=== PATIENT | male | born 1955 | race Caucasian/White ===

== ENCOUNTER 2016-07-08 10:43 | Emergency (ER) | payer BC ==
[2016-07-08 10:58] VITALS: BP 157/107; PULSE 84; TEMP 97.4; BMI 38.0
--- NOTE | 2016-07-08 12:31 | PDOC ---
[id number] Initial Comments: 07/08/16 14:42 The patient is a 61 year old male with a significant past medical history of HTN who presents to the Emergency Department with complaints head injury s/p fall at 10:30am. Pt states that he slipped and fell backward on a moving truck ramp, and hit the back of his head. He denies any LOC. He denies any chest pain , SOB, palpitation, dizziness, or headache prior to fall. Pt reports head and neck pain while in the ER. He also reports chills and nausea. He denies fever, abdominal pain, vomiting, diarrhea, back pain, nubmness, tingling, dizziness. Pt states that he lives in [place] and he travels alot for work. PCP: in [place] <Carmen Lockhart - Last Filed: 07/08/16 14:42> <Morgan Salinas - Last Filed: 07/12/16 09:18> - General Chief Complaint: Injury Stated Complaint: FALL/ HEAD INJURY Time Seen by Provider: 07/08/16 11:28 Past History <Carmen Lockhart - Last Filed: 07/08/16 14:42> - Past Medical History HTN: Yes - Surgical History Appendectomy: Yes - Psycho/Social/Smoking Cessation Hx Suicidal Ideation: No Smoking History: Former smoker Have you smoked in the past 12 months: No Information on smoking cessation initiated: No <Morgan Salinas - Last Filed: 07/12/16 09:18> - Past Medical History Allergies/Adverse Reactions: Allergies Allergy/AdvReac Type Severity Reaction Status Date / Time No Known Allergies Allergy Verified 07/08/16 10:53 Home Medications: Ambulatory Orders Lisinopril/Hydrochlorothiazide [Lisinopril-Hctz 20-12.5 mg Tab] 1 each PO DAILY 07/08/16 Ondansetron [Zofran -] 4 mg PO TID PRN #14 tablet 07/08/16 Review of Systems - Review of Systems Able to Perform ROS?: Yes Comments:: 07/08/16 14:43 CONSTITUTIONAL: Yes: chills No reported: Fever, Diaphoresis, Generalized Weakness, Malaise, Loss of Appetite HEENT: No reported: Rhinorrhea, Nasal Congestion, Throat Pain, Throat Swelling, Difficulty Swallowing, Mouth Swelling, Ear Pain, Eye Pain, Visual Changes CARDIOVASCULAR: No reported: Chest Pain, Syncope, Palpitations, Irregular Heart Rate, Lightheadedness, Peripheral Edema RESPIRATORY: No reported: Cough, Shortness of Breath, SOB with Exertion, Orthopnea, Wheezing , Stridor, Hemoptysis GASTROINTESTINAL: Yes: nausea No reported: Abdominal pain, Abdominal Distension, Vomiting, Diarrhea, Constipation, Melena, Hematochezia GENITOURINARY: No reported: Dysuria, Frequency, Urgency, Hesitancy, Flank Pain, Genital Pain MUSCULOSKELETAL: Yes: head pain, neck pain No reported: Joint Swelling, Back pain SKIN: No reported: Rash, Itching, Pallor HEMEATOLOGIC/IMMUNOLOGIC: No reported: Easy Bleeding, Easy Bruising, Lymphadenopathy, Frequent infections ENDOCRINE: No reported: Unexplained Weight Gain, Unexplained Weight Loss, Heat Intolerance , Cold Intolerance NEUROLOGIC: No reported: Headache, Focal Weakness, Paresthesias, Vertigo, Lightheadedness, Unsteady Gait, Seizure, Mental Status Changes, Incontinence PSYCHIATRIC: No reported: Anxiety, Depression All Other Systems: Reviewed and Negative <Carmen Lockhart - Last Filed: 07/08/16 14:42> *Physical Exam - Vital Signs Last Vital Signs Temp Pulse Resp BP Pulse Ox 97.4 F L 84 21 157/107 99 07/08/16 10:54 07/08/16 10:54 07/08/16 10:54 07/08/16 10:54 07/08/16 10:54 - Physical Exam Comments: 07/08/16 14:43 GENERAL: The patient is awake, alert, and fully oriented, Nontoxic - in no acute distress. HEAD: Normocephalic, contusion on posterior scalp, mildly tender to palpation, no stepoffs. EYES: extraocular movements intact, sclera anicteric, conjunctiva clear. pupils 3mm and reactively symmetric ENT: Normal voice, Moist mucous membranes. NECK: Normal range of motion, supple, LUNGS: Breath sounds equal, clear to auscultation bilaterally. No wheezes, no rhonchi, no rales. HEART: Regular rate and rhythm, normal S1 and S2 without murmur, rub or gallop. ABDOMEN: Soft, nontender, normoactive bowel sounds. No guarding, no rebound. . No CVA tenderness EXTREMITIES: Normal range of motion, +2pitting edema b/l, mild erythema with ski nchanges over L quintero without warmth (chronic per patient) No cords or tenderness. NEUROLOGICAL: No facial assymetry, Normal speech, PSYCH: Normal mood, normal affect. SKIN: Warm, Dry, normal turgor, Back: No midline tenderness to the cervical, thoracic or lumbar spine, mild tenderness to R cervical paraspinal region/trapezius. Musculoskelatal: FROM of b/l shoulders, elbows, wrist. FROM of hips, knees, ankles - No signs of ecchymosis, erythema, or crepitus noted on palpation extremities, chest wall, clavicals, ribs, back. <Carmen Lockhart - Last Filed: 07/08/16 14:42> - Vital Signs Last Vital Signs Temp Pulse Resp BP Pulse Ox 97.4 F L 84 21 157/107 99 07/08/16 10:54 07/08/16 10:54 07/08/16 10:54 07/08/16 10:54 07/08/16 10:54 <Morgan Salinas - Last Filed: 07/12/16 09:18> ED Treatment Course - Medications Given in the ED: ED Medications Discontinued Medications Generic Name Dose Route Start Last Admin Trade Name Freq PRN Reason Stop Dose Admin Acetaminophen 650 mg 07/08/16 12:37 07/08/16 13:15 Tylenol - PO 07/08/16 12:38 650 mg ONCE ONE Administration Ondansetron HCl 4 mg 07/08/16 12:37 07/08/16 13:16 Zofran - PO 07/08/16 12:38 4 mg ONCE ONE Administration <Carmen Lockhart - Last Filed: 07/08/16 14:42> Medical Decision Making - Medical Decision Making 07/08/16 12:41 61y M hx of htn, presents s/p mechanical fall. The pt was on a moving truck and slipped on a ramp, landing on his head (fell on the ramp, not off of the ramp) pt was dazed for a few seconds, but dnies any LOC.Pt does endorse headache and feeling nauseus as well as some neck pain. On exam pt has a contusion on his posterior scalp with a hematoma, mild parapsinal tenderness in cervical spine w/ o any midline tenderness elsewhere. will obtain head/cspine director trust to ro fx will give tylenol, zofran for sypmtomatic relief will reassess 07/08/16 14:[address] of the head is negative for any fracture or bleeding or other acute findings. The patient's CT of the C-spine is also negative, beside mild joint arthropathy , and some degenerative changes. He is feeling improved. Will discharge patient to follow up with primary care, Postconcussive instructions were given Will give a prescription for Zofran Supportive care at home I discussed the physical exam findings, ancillary test results and final diagnoses with the patient. I answered all of the patient's questions. The patient was satisfied with the care received and felt comfortable with the discharge plan and treatment plan. The patient will call their primary care physician within 24 hours to arrange follow-up and will return to the Emergency Department with any new, persistent or worsening symptoms. <Morgan Salinas - Last Filed: 07/12/16 09:18> *DC/Admit/Observation/Transfer - Attestations Scribe Attestion: 07/08/16 14:44 Documentation prepared by Carmen Lockhart, acting as nuclear medicine medical director for Morgan Salinas MD. <Carmen Lockhart - Last Filed: 07/08/16 14:42> - Discharge Dispostion Admit: No <Morgan Salinas - Last Filed: 07/12/16 09:18> Diagnosis at time of Disposition: Head injury due to trauma Qualifiers: Encounter type: initial encounter Qualified Code(s): S09.90XA - Unspecified injury of head, initial encounter - Discharge Dispostion Disposition: HOME Condition at time of disposition: Improved - Prescriptions Prescriptions: Ondansetron [Zofran -] 4 mg PO TID PRN #14 tablet PRN Reason: Nausea - Referrals Referrals: [facility] [Provider Group] - Patient Instructions Printed Discharge Instructions: DI for Closed Head Injury, DI for Postconcussion Syndrome Additional Instructions: Eat light. Clear liquids, such as broth or gelatin, are a good choice. Don't drink alcohol or use any recreational drugs. Don't return to sports or any activity that could cause you to hit your head until all symptoms are gone and you have been cleared by your doctor. A second head injury before full recovery from the first one can lead to serious brain injury. Avoid activities that require a lot of concentration or attention (including reading, surfing the web, watching tv). This will allow your brain to rest and heal more quickly. Take ibuprofen or tylenol as needed for headache. Take Zofran for nausea. Follow up with your primary care doctor in 5 days. Follow up with neurology in 2 weeks, especially if your symptoms have not yet resolved. Print Language: [place] CITIZ[place]
[2016-07-08] MEDS ORDERED: ACETAMINOPHEN 325 MG TABLET (FP) PO ONE (12:37)
[2016-07-08] MEDS ORDERED: ONDANSETRON 4 MG TABLET PO ONE (12:37)
[2016-07-08] MEDS ORDERED: ONDANSETRON *ODT* 4 MG TABLET ONE (13:09)
[2016-07-08] MEDS ORDERED: ACETAMINOPHEN 325 MG TABLET (FP) ONE (13:09)
== END 2016-07-08 14:54 | disposition home or self-care (01) ==
LOC: JER 10:43
DX: S09.90XA Unspecified injury of head, initial encounter (principal); W18.30XA Fall on same level, unspecified, initial encounter; Y93.89 Activity, other specified; Y92.9 Unspecified place or not applicable; I10 Essential (primary) hypertension; Z87.891 Personal history of nicotine dependence
CPT/HCPCS: 70450-TC; 72125-TC; 99282-25

== ENCOUNTER 2017-04-22 03:37 | Inpatient (IN) | payer BC ==
[2017-04-22 04:13] LABS: MCH 26.1 pg (25.7-33.7); MCHC 31.7 g/dl (32.0-35.9); MEAN CELL VOLUME 82.3 fl (80-96); MEAN PLT VOLUME 9.1 fl (7.5-11.1); NEUTROPHILS 70.5 % (42.8-82.8); PLATELET COUNT 257 K/MM3 (134-434); RDW 15.6 % (11.9-15.9); WHITE BLOOD COUNT 10.8 K/mm3 (4.0-10.0)
[2017-04-22 04:29] LABS: INR 1.03 (0.82-1.09); PROTHROMBIN TIME (PATIENT) 11.6 SEC (9.98-11.88)
--- NOTE | 2017-04-22 04:31 | PDOC ---
History of Present Illness - General History Source: Patient Exam Limitations: No Limitations - History of Present Illness Initial Comments: 04/22/17 05:08 The patient is a 61-year-old male with a significant past medical history of HTN and prostate CA, and presents to the emergency department with nose bleed for the last 5 days and severe nasal bleeding since 12:30 am tonight. He states he has been bleeding profusely on and off for the last 4 hours. They were able to mildly control the bleeding every half hour with ice packs to the nose and neck. The states each episode produces about three paper cups full of blood. He states he does not have a history of nosebleeds, and this is the first time he has experienced nosebleeds like this. He notes associated lightheadedness and dizziness. He denies any acute trauma. He also reports that he stopped taking Viagra 5 days ago as well. He states the swelling in his left leg is due to poor circulation from a previous injury. The patient denies chest pain, shortness of breath or headache. The patient denies fever, chills, nausea, vomit, diarrhea and constipation. The patient denies dysuria, frequency, urgency and hematuria. Allergies: NKDA Past Surgical History: prostatectomy (2017) Social History: No toxic habits reported PCP: in [place] <Patti Ch - Last Filed: 04/22/17 05:08> <Vicki Etienne - Last Filed: 04/23/17 01:21> - General Chief Complaint: Nasal Bleeding Stated Complaint: NOSE BLEED Time Seen by Provider: 04/22/17 04:01 Past History <Patti Ch - Last Filed: 04/22/17 05:08> - Past Medical History HTN: Yes - Surgical History Appendectomy: Yes - Suicide/Smoking/Psychosocial Hx Smoking History: Never smoked Have you smoked in the past 12 months: No Information on smoking cessation initiated: No Hx Alcohol Use: No Drug/Substance Use Hx: No <Vicki Etienne - Last Filed: 04/23/17 01:21> - Past Medical History Allergies/Adverse Reactions: Allergies Allergy/AdvReac Type Severity Reaction Status Date / Time No Known Allergies Allergy Verified 04/22/17 03:46 Home Medications: Ambulatory Orders Lisinopril/Hydrochlorothiazide [Lisinopril-Hctz 20-12.5 mg Tab] 1 each PO DAILY 07/08/16 Amoxicillin/Potassium Clav [Augmentin 875-125 Tablet] 1 each PO BID #10 tablet 04/22/17 Review of Systems - Review of Systems Able to Perform ROS?: Yes Comments:: 04/22/17 05:08 GENERAL/CONSTITUTIONAL: No fever or chills. No weakness. HEAD, EYES, EARS, NOSE AND THROAT: No change in vision. No ear pain or discharge. No sore throat. (+) Nasal bleeding. CARDIOVASCULAR: No chest pain or shortness of breath. RESPIRATORY: No cough, wheezing, or hemoptysis. GASTROINTESTINAL: No nausea, vomiting, diarrhea or constipation. GENITOURINARY: No dysuria, frequency, or change in urination. MUSCULOSKELETAL: No joint or muscle swelling or pain. No neck or back pain. SKIN: No rash NEUROLOGIC: (+) Lightheadedness. No headache, vertigo, loss of consciousness, or change in strength/sensation. ENDOCRINE: No increased thirst. No abnormal weight change. HEMATOLOGIC/LYMPHATIC: No anemia, or history of blood clots. ALLERGIC/IMMUNOLOGIC: No hives or skin allergy. <Ch,Patti - Last Filed: 04/22/17 05:08> *Physical Exam - Vital Signs Last Vital Signs Temp Pulse Resp BP Pulse Ox 97.3 F L 81 22 79/62 97 04/22/17 03:46 04/22/17 03:46 04/22/17 03:46 04/22/17 03:46 04/22/17 03:46 - Physical Exam Comments: 04/22/17 05:08 GENERAL: Awake, alert, and fully oriented, in no acute distress. (+) Morbidly obese. (+) Extremely dizzy. (+) Diaphoretic. HEAD: No signs of trauma EYES: PERRLA, EOMI, sclera anicteric, conjunctiva clear ENT: Auricles normal inspection, hearing grossly normal, (+) red blood in nares bilaterally, no active bleeding after compression, oropharynx clear without exudates. Moist mucosa NECK: Normal ROM, supple, no lymphadenopathy, JVD, or masses LUNGS: Breath sounds equal, clear to auscultation bilaterally. No wheezes, and no crackles HEART: Regular rate and rhythm, normal S1 and S2, no murmurs, rubs or gallops ABDOMEN: Soft, nontender, normoactive bowel sounds. No guarding, no rebound. No masses EXTREMITIES: Normal range of motion, (+) bilateral pitting edema, right worse than left. No clubbing or cyanosis. No cords, erythema, or tenderness NEUROLOGICAL: Cranial nerves II through XII grossly intact. SKIN: Warm, Dry, normal turgor, no rashes or lesions noted. (+) Chronic skin changes of the LEs. <Patti Ch - Last Filed: 04/22/17 05:08> - Vital Signs Last Vital Signs Temp Pulse Resp BP Pulse Ox 97.3 F L 81 22 79/62 97 04/22/17 03:46 04/22/17 03:46 04/22/17 03:46 04/22/17 03:46 04/22/17 03:46 <Vicki Etienne - Last Filed: 04/23/17 01:21> ED Treatment Course - LABORATORY CBC & Chemistry Diagram: 04/22/17 03:55 04/22/17 03:55 - ADDITIONAL ORDERS Additional order review: Laboratory Results 04/22/17 04/22/17 04/22/17 04:13 03:55 03:55 PT with INR INR Sodium 141 Potassium 4.5 Chloride 107 Carbon Dioxide 23 Anion Gap 11 BUN 27 H Creatinine 0.9 Creat Clearance w eGFR > 60 Random Glucose 156 H Calcium 7.9 L Total Bilirubin 0.3 AST 13 L ALT 21 Alkaline Phosphatase 87 Creatine Kinase 108 Troponin I < 0.02 Total Protein 5.7 L Albumin 2.9 L Blood Type O POSITIVE O POSITIVE Antibody Screen Negative Crossmatch See Detail See Detail 04/22/17 03:55 PT with INR 11.60 INR 1.03 Sodium Potassium Chloride Carbon Dioxide Anion Gap BUN Creatinine Creat Clearance w eGFR Random Glucose Calcium Total Bilirubin AST ALT Alkaline Phosphatase Creatine Kinase Troponin I Total Protein Albumin Blood Type Antibody Screen Crossmatch 04/22/17 03:55 RBC 4.18 MCV 82.3 MCHC 31.7 L RDW 15.6 MPV 9.1 Neutrophils % 70.5 Lymphocytes % 16.7 Monocytes % 8.8 Eosinophils % 3.0 Basophils % 1.0 <Patti Ch - Last Filed: 04/22/17 05:08> - LABORATORY CBC & Chemistry Diagram: 04/22/17 12:05 04/22/17 08:00 - ADDITIONAL ORDERS Additional order review: Laboratory Results 04/22/17 04:13 Crossmatch See Detail 04/22/17 03:55 RBC 4.18 MCV 82.3 MCHC 31.7 L RDW 15.6 MPV 9.1 Neutrophils % 70.5 Lymphocytes % 16.7 Monocytes % 8.8 Eosinophils % 3.0 Basophils % 1.0 <Vicki Etienne - Last Filed: 04/23/17 01:21> Medical Decision Making - Critical Care Time Total Critical Care Time (minutes): 30 Critical Care Statement: The care of this patient involved high complexity decision making to prevent further life threatening deterioration of the patient 's condition and/or to evaluate & treat vital organ system(s) failure or risk of failure. - Medical Decision Making 04/22/17 05:43 Pt walked in with a systolic BP of 70. EMS brought him in but presumably never checked his BP. Pt is diaphoretic and pale in the ER, and looks in shock. Repeat BP sytolic is 52. At that point myself, nurses and techs started 2 IV lines and 1L NSS was begun, while pt was placed flat in the stretcher and [id number] begun. Pt immediately felt better; BP jumped to 103, then back down to 87 and 81. Pt and his state that he has been on and off with nasal bleeding. Today he has been bleeding out 3 cups of blood at a time. Pt is able to stop the bleeding by pinching his nose. He is not on asa or blood thinners. Pt is compliant with his lisinopril. He recently had a prostatectomy for prostate cancer, and he has been on viagra. His PMD from [place] told him to stop the viagra when the epistaxis began on Monday. Pt was ordered 2 units Opositive blood to resuscitate him, as he seems to have lost a lot of blood; labs were pending at the time. No pressors given at this time, as pt is alert and feeling better, despite low BP around 87/50. 04/23/17 01:21 Pt admitted to the ICU <Vicki Etienne - Last Filed: 04/23/17 01:21> *DC/Admit/Observation/Transfer - Attestations Scribe Attestion: 04/22/17 05:10 Documentation prepared by Patti Ch, acting as biomedical engineering aide for Vicki Etienne MD/. <Patti Ch - Last Filed: 04/22/17 05:08> - Discharge Dispostion Admit: Yes <Vicki Etienne - Last Filed: 04/23/17 01:21> Diagnosis at time of Disposition: Hypotension - Discharge Dispostion Disposition: HOME Condition at time of disposition: Stable
[2017-04-22 04:40] LABS: ALBUMIN 2.9 g/dl (3.4-5.0); ANION GAP 11 (8-16); BILIRUBIN,TOTAL 0.3 mg/dL (0.2-1.0); CALCIUM 7.9 mg/dL (8.5-10.1); CO2 23 mmol/L (21-32); CREATININE 0.9 mg/dL (0.7-1.3); GLUCOSE,RANDOM 156 mg/dL (74-106); SGOT/AST 13 U/L (15-37); SGPT/ALT 21 U/L (12-78); TOT PROT 5.7 g/dl (6.4-8.2)
[2017-04-22 04:43] LABS: ALK PHOS 87 U/L (45-117); CPK 108 IU/L (39-308); TROPONIN I < 0.02 ng/ml (0.00-0.05)
[2017-04-22 06:02] VITALS: BMI 54.3
[2017-04-22] MEDS ORDERED: TETRACAINE/BENZOCAINE/BUTAMBEN 20 GM SPR TP ONE (07:01)
--- NOTE | 2017-04-22 07:02 | PN ---
Teaching Attending Note Name of Resident: Frank Bell ATTENDING PHYSICIAN STATEMENT I saw and evaluated the patient. I reviewed the resident's note and discussed the case with the resident. I agree with the resident's findings and plan as documented. SUBJECTIVE: 61 y/o M presented to ED after 4 days of epistaxis. Patient recently stopped his viagra treatment for prostate cancer. s/p prostatectomy in january 2017. Patient ROS: All systems reviewed and negative other than mentioned. OBJECTIVE: Gen: Obese, A&Ox3 HEENT: blood from right nare, PERRLA, EOMI, Oral mucosa no lesions CVS: RRR, S1,S2 LUNGS: CTA, no wheezing Abdomen: Soft, BS+, no organomegaly Ext: b/l lower ext 1+ pitting edema, palpable pulses, slight erythema left lower extremity. Neuro: CN2-12 intact CBCD WBC 10.8 K/mm3 (4.0-10.0) H 04/22/17 03:55 RBC 4.18 M/mm3 (4.00-5.60) 04/22/17 03:55 Hgb 10.9 GM/dL (11.7-16.9) L 04/22/17 03:55 Hct 34.4 % (35.4-49) L 04/22/17 03:55 MCV 82.3 fl (80-96) 04/22/17 03:55 MCHC 31.7 g/dl (32.0-35.9) L 04/22/17 03:55 RDW 15.6 % (11.9-15.9) 04/22/17 03:55 Plt Count 257 K/MM3 (134-434) 04/22/17 03:55 MPV 9.1 fl (7.5-11.1) 04/22/17 03:55 CMP Sodium 141 mmol/L (136-145) 04/22/17 03:55 Potassium 4.5 mmol/L (3.5-5.1) 04/22/17 03:55 Chloride 107 mmol/L (98-107) 04/22/17 03:55 Carbon Dioxide 23 mmol/L (21-32) 04/22/17 03:55 Anion Gap 11 (8-16) 04/22/17 03:55 BUN 27 mg/dL (7-18) H 04/22/17 03:55 Creatinine 0.9 mg/dL (0.7-1.3) 04/22/17 03:55 Creat Clearance w eGFR > 60 (>60) 04/22/17 03:55 Random Glucose 156 mg/dL (74-106) H 04/22/17 03:55 Calcium 7.9 mg/dL (8.5-10.1) L 04/22/17 03:55 Total Bilirubin 0.3 mg/dL (0.2-1.0) 04/22/17 03:55 AST 13 U/L (15-37) L 04/22/17 03:55 ALT 21 U/L (12-78) 04/22/17 03:55 Alkaline Phosphatase 87 U/L (45-117) 04/22/17 03:55 Total Protein 5.7 g/dl (6.4-8.2) L 04/22/17 03:55 Albumin 2.9 g/dl (3.4-5.0) L 04/22/17 03:55 CARDIAC ENZYMES Creatine Kinase 108 IU/L (39-308) 04/22/17 03:55 Troponin I < 0.02 ng/ml (0.00-0.05) 04/22/17 03:55 ASSESSMENT AND PLAN: Epistaxis- Cetacaine, posterior rhinorocket inserted in right nare. HTN- continue lisinopril Anemia secondary to acute blood loss- 1 unit transfused Lasix 20mg IVF after ECHO H/O prostate cancer s/p prostatectomy ENT consult Critical Care Total Critical Care Time (in minutes): 50 Critical Care Statement: The care of this patient involved high complexity decision making to prevent further life threatening deterioration of the patient 's condition and/or to evaluate & treat vital organ system(s) failure or risk of failure.
[2017-04-22] MEDS ORDERED: FUROSEMIDE 20 MG TABLET (FP) PO ONE (07:47)
--- NOTE | 2017-04-22 08:00 | HP ---
CHIEF COMPLAINT: bleeding from nose PCP: HISTORY OF PRESENT ILLNESS: 61 year old male with a past medical history of prostate cancer and hypertension presented to the emergency department this morning for a 5 day history of epistaxis. He states that the bleeding came and went but became very severe last night to the point that he felt weak and lightheaded. He had previously used ice packs to try and control the bleeding, but it was not able to be controlled adequately. Patient is seen together with his , who reports that each time the patient coughs, he brings up a lot of blood in "cupfulls". Patient has never had this happen to him in the past. He just stopped taking viagra last week. Patient denies any trauma, chest pain, shortness of breath, nausea, vomiting, fever, chills, abdominal pain, diarrhea. ED transfused 1 unit of blood. ER course was notable for: (1) Anemia hgb 10.1 (2) BUN/Cre 27/0.1 (3) 1U PRBCs transfused Recent Travel: none PAST MEDICAL HISTORY: hypertension, prostate cancer treated with prostatectomy and viagra PAST SURGICAL HISTORY: prostatectomy, appendectomy Social History: Smoking: none Alcohol: none Drugs: none Family History: unknown at present time Allergies No Known Allergies Allergy (Verified 04/22/17 03:46) HOME MEDICATIONS: Home Medications Medication Instructions Recorded Lisinopril/Hydrochlorothiazide 1 each PO DAILY 07/08/16 [Lisinopril-Hctz 20-12.5 mg Tab] REVIEW OF SYSTEMS CONSTITUTIONAL: Absent: fever, chills, diaphoresis, generalized weakness, malaise, loss of appetite, weight change HEENT: epistaxis Absent: rhinorrhea, nasal congestion, throat pain, throat swelling, difficulty swallowing, mouth swelling, ear pain, eye pain, visual changes CARDIOVASCULAR: Absent: chest pain, syncope, palpitations, irregular heart rate, lightheadedness , peripheral edema RESPIRATORY: Absent: cough, shortness of breath, dyspnea with exertion, orthopnea, wheezing, stridor, hemoptysis GASTROINTESTINAL: Absent: abdominal pain, abdominal distension, nausea, vomiting, diarrhea, constipation, melena, hematochezia GENITOURINARY: Absent: dysuria, frequency, urgency, hesitancy, hematuria, flank pain, genital pain MUSCULOSKELETAL: Absent: myalgia, arthralgia, joint swelling, back pain, neck pain SKIN: Absent: rash, itching, pallor HEMATOLOGIC/IMMUNOLOGIC: Absent: easy bleeding, easy bruising, lymphadenopathy, frequent infections ENDOCRINE: Absent: unexplained weight gain, unexplained weight loss, heat intolerance, cold intolerance NEUROLOGIC: Absent: headache, focal weakness or paresthesias, dizziness, unsteady gait, seizure, mental status changes, bladder or bowel incontinence PSYCHIATRIC: Absent: anxiety, depression, suicidal or homicidal ideation, hallucinations. PHYSICAL EXAMINATION Vital Signs - 24 hr 04/22/17 04/22/17 04/22/17 03:46 03:55 04:00 Temperature 97.3 F L Pulse Rate 81 89 Pulse Rate [ Right Radial] Respiratory 22 Rate Blood Pressure 79/62 Blood Pressure [Right Arm] O2 Sat by Pulse 97 100 100 Oximetry (%) 04/22/17 04/22/17 04/22/17 04:15 04:45 05:00 Temperature 97.5 F L 98.5 F 97.5 F L Pulse Rate Pulse Rate [ 63 88 70 Right Radial] Respiratory 19 19 17 Rate Blood Pressure Blood Pressure 106/45 81/59 94/49 [Right Arm] O2 Sat by Pulse 100 100 100 Oximetry (%) 04/22/17 04/22/17 05:51 06:43 Temperature 98.0 F Pulse Rate 87 Pulse Rate [ Right Radial] Respiratory 20 Rate Blood Pressure 91/43 Blood Pressure [Right Arm] O2 Sat by Pulse 98 100 Oximetry (%) GENERAL: Awake, alert, and fully oriented, in no acute distress. HEAD: Normal with no signs of trauma. EYES: Pupils equal, round and reactive to light, extraocular movements intact, sclera anicteric, conjunctiva clear. No lid lag. EARS, NOSE, THROAT: Ears normal, nares patent, oropharynx has some blood on the inside, nose actively bleeding on the R nostril. NECK: Normal range of motion, supple without lymphadenopathy, JVD, or masses. LUNGS: Breath sounds equal, clear to auscultation bilaterally. No wheezes, and no crackles. No accessory muscle use. HEART: Regular rate and rhythm, normal S1 and S2 without murmur, rub or gallop. ABDOMEN: Soft, obese, nontender, not distended, normoactive bowel sounds, no guarding, no rebound, no masses. No hepatomegaly or splenomegaly. MUSCULOSKELETAL: Normal range of motion at all joints. No bony deformities or tenderness. No CVA tenderness. UPPER EXTREMITIES: 2+ pulses, warm, well-perfused. No cyanosis. No clubbing. No peripheral edema. LOWER EXTREMITIES: 2+ pulses, warm, well-perfused. No calf tenderness. L leg swelling noted. NEUROLOGICAL: Cranial nerves II-XII intact. Normal speech. Normal gait. PSYCHIATRIC: Cooperative. Good eye contact. Appropriate mood and affect. SKIN: Warm, dry, normal turgor, no rashes or lesions noted, normal capillary refill. Laboratory Results - last 24 hr 04/22/17 04/22/17 04/22/17 03:55 03:55 03:55 WBC 10.8 H RBC 4.18 Hgb 10.9 L Hct 34.4 L MCV 82.3 MCH 26.1 MCHC 31.7 L RDW 15.6 Plt Count 257 MPV 9.1 Neutrophils % 70.5 Lymphocytes % 16.7 Monocytes % 8.8 Eosinophils % 3.0 Basophils % 1.0 PT with INR 11.60 INR 1.03 Sodium 141 Potassium 4.5 Chloride 107 Carbon Dioxide 23 Anion Gap 11 BUN 27 H Creatinine 0.9 Creat Clearance w eGFR > 60 Random Glucose 156 H Calcium 7.9 L Total Bilirubin 0.3 AST 13 L ALT 21 Alkaline Phosphatase 87 Creatine Kinase 108 Troponin I < 0.02 Total Protein 5.7 L Albumin 2.9 L Blood Type Antibody Screen Crossmatch 04/22/17 04/22/17 03:55 04:13 WBC RBC Hgb Hct MCV MCH MCHC RDW Plt Count MPV Neutrophils % Lymphocytes % Monocytes % Eosinophils % Basophils % PT with INR INR Sodium Potassium Chloride Carbon Dioxide Anion Gap BUN Creatinine Creat Clearance w eGFR Random Glucose Calcium Total Bilirubin AST ALT Alkaline Phosphatase Creatine Kinase Troponin I Total Protein Albumin Blood Type O POSITIVE O POSITIVE Antibody Screen Negative Crossmatch See Detail See Detail ASSESSMENT/PLAN: 61 year old male with a past medical history of hypertension and prostate cancer admitted to the ICU for hypovolemic shock 2/2 acute blood loss #Hypovolemic Shock: secondary to acute blood loss from epistaxis -already transfused 1U PRBC in ED/ICU, blood pressure responded to blood tranfusion -recheck CBC in 4 hours -patient's Hgb was 10.2 upon receiving transfusion from ED -upon completion of unit of PRBC, give 1 dose of lasix 20mg -transfuse if hgb < 7 -inserted posterior nasal packing -ENT consult Dr. Jj #Hypertension: currently hypotensive -hold home lisinopril #Lower Extremity Edema: patient stated that he has had this before -f/u lower extremity doppler #Morbid Obesity -measure A1C to assess for diabetes/metabolic syndrome -echocardiography to assess cardiac status #Obstructive Sleep Apnea: will need sleep study as an outpatient -CPAP overnight -echocardiography #FEN -finish unit PRBC, hold fluids due to potential volume overload -electrolytes wnl -low sodium diet #Prophylaxis -SCDs, no heparin due to acute bleed #Dispo -Admit to ICU for monitoring -full code Critical Care time 50 minutes Frank Bell D.O. Visit type - Emergency Visit Emergency Visit: Yes ED Registration Date: 04/22/17 Care time: The patient presented to the Emergency Department on the above date and was hospitalized for further evaluation of their emergent condition. - New Patient This patient is new to me today: Yes Date on this admission: 04/22/17 - Critical Care Critical Care patient: Yes Total Critical Care Time (in minutes): 50 Critical Care Statement: The care of this patient involved high complexity decision making to prevent further life threatening deterioration of the patient 's condition and/or to evaluate & treat vital organ system(s) failure or risk of failure.
[2017-04-22 08:28] LABS: BASOPHIL 0.7 % (0-2.0); EOSINOPHIL 0.8 % (0-4.5); MCH 25.9 pg (25.7-33.7); MCHC 31.6 g/dl (32.0-35.9); MEAN CELL VOLUME 81.9 fl (80-96); MEAN PLT VOLUME 8.7 fl (7.5-11.1); NEUTROPHILS 85.7 % (42.8-82.8); PLATELET COUNT 178 K/MM3 (134-434); RDW 15.3 % (11.9-15.9); WHITE BLOOD COUNT 9.3 K/mm3 (4.0-10.0)
[2017-04-22 08:48] LABS: INR 1.05 (0.82-1.09); PROTHROMBIN TIME (PATIENT) 11.9 SEC (9.98-11.88)
[2017-04-22 08:51] LABS: ACTIVATED PTT 28.6 SECONDS (26.9-34.4)
[2017-04-22 09:09] LABS: CHOLESTEROL 124 mg/dL (50-200)
[2017-04-22 09:16] LABS: ALBUMIN 2.6 g/dl (3.4-5.0); ALK PHOS 76 U/L (45-117); ANION GAP 8 (8-16); BILIRUBIN,TOTAL 0.4 mg/dL (0.2-1.0); CALCIUM 7.9 mg/dL (8.5-10.1); CO2 23 mmol/L (21-32); CREATININE 0.8 mg/dL (0.7-1.3); GLUCOSE,RANDOM 115 mg/dL (74-106); PHOSPHOROUS 2.6 mg/dL (2.5-4.9); SGOT/AST 10 U/L (15-37); SGPT/ALT 20 U/L (12-78); TOT PROT 5.5 g/dl (6.4-8.2)
[2017-04-22] MEDS ORDERED: MUPIROCIN 2% TOPICAL OINTMENT FOR DECOLONIZATION NS SCH (10:00)
--- NOTE | 2017-04-22 10:43 | CONSULT ---
Consult - text type - Consultation Consultation Note: Pulm/CCM Pt seen and examined in ICU HPI: 61 year old male with a past medical history of prostate cancer on sildenafil and hypertension who presented to ED this am with 5 day hx of spontaneous epistaixis. The bleeding has been intermittent and pt relates URI in last week. He spoke to oncologist team and they suggested he stop sildenafi, which he did. He made appt for ENT eval for today but last night bleeding became severe and he felt he was unable to effectively control bleeding. Before was able to control with pinching of nares and using ice pack. On way into ED he had presyncopal episode. Denied full LOC, Cxpn, SOB, other changes in medications, trauma. He is not on anticoagulation or anti-plt therapy. He denies frequent nosebleeds. In ED pt was hypotensive with SBP in 80s, tachycardic and pale. Hgb was 10, he was transfused 1 PRBC. A rhino-rocket was placed in R nare with hemostasis acheived. Transferred to ICU. Recent Travel: none PAST MEDICAL HISTORY: hypertension, prostate cancer treated with prostatectomy and viagra PAST SURGICAL HISTORY: prostatectomy, appendectomy Social History: Smoking: none Alcohol: none Drugs: none Family History: unknown at present time Allergies No Known Allergies Allergy (Verified 04/22/17 03:46) HOME MEDICATIONS: Home Medications Medication Instructions Recorded Lisinopril/Hydrochlorothiazide 1 each PO DAILY 07/08/16 [Lisinopril-Hctz 20-12.5 mg Tab] REVIEW OF SYSTEMS 10 pt review is negative except for as per HPI PHYSICAL EXAMINATION Vital Signs Temp 98.0 F 04/22/17 05:51 Pulse 82 04/22/17 10:27 Resp 20 04/22/17 09:57 BP 122/65 04/22/17 09:57 Pulse Ox 99 04/22/17 10:27 Intake & Output 04/21/17 04/21/17 04/22/17 11:59 23:59 11:59 Weight 157.567 kg Other: Voiding Method Urinal Height 5 ft 7 in Body Mass Index (BMI) 54.3 Weight Measurement Method Built in [facility] Weight Measurement Method Est/Stated by Patient GENERAL: Awake, alert, and fully oriented, in no acute distress. HEAD: Normal with no signs of trauma. EYES: PERRL, EOMI EARS, NOSE, THROAT: Ears normal, R packing/rhino rocket in place. NECK: Normal range of motion, supple without lymphadenopathy, JVD, or masses. LUNGS: Breath sounds equal, clear to auscultation bilaterally. No wheezes, and no crackles.Diminished bases. HEART: Regular rate and rhythm, normal S1 and S2 without murmur, rub or gallop appreciated ABDOMEN:soft, obese MUSCULOSKELETAL: Normal range of motion at all joints. No bony deformities or tenderness. No CVA tenderness. UPPER EXTREMITIES: 2+ pulses, warm, well-perfused. No cyanosis. No clubbing. No peripheral edema. LOWER EXTREMITIES: 2+ pulses, warm, well-perfused. 2+ pitting edema, L> R venous stasis changes, some redness but not warm/no blistering NEUROLOGICAL: Cranial nerves II-XII intact. Normal speech. PSYCHIATRIC:WNL SKIN: Warm, dry, normal turgor, no rashes or lesions noted, normal capillary refill. CBCD WBC 9.3 K/mm3 (4.0-10.0) 04/22/17 08:00 RBC 3.93 M/mm3 (4.00-5.60) L 04/22/17 08:00 Hgb 10.2 GM/dL (11.7-16.9) L 04/22/17 08:00 Hct 32.2 % (35.4-49) L 04/22/17 08:00 MCV 81.9 fl (80-96) 04/22/17 08:00 MCHC 31.6 g/dl (32.0-35.9) L 04/22/17 08:00 RDW 15.3 % (11.9-15.9) 04/22/17 08:00 Plt Count 178 K/MM3 (134-434) D 04/22/17 08:00 MPV 8.7 fl (7.5-11.1) 04/22/17 08:00 CMP Sodium 140 mmol/L (136-145) 04/22/17 08:00 Potassium 4.9 mmol/L (3.5-5.1) 04/22/17 08:00 Chloride 109 mmol/L (98-107) H 04/22/17 08:00 Carbon Dioxide 23 mmol/L (21-32) 04/22/17 08:00 Anion Gap 8 (8-16) 04/22/17 08:00 BUN 33 mg/dL (7-18) H D 04/22/17 08:00 Creatinine 0.8 mg/dL (0.7-1.3) 04/22/17 08:00 Creat Clearance w eGFR > 60 (>60) 04/22/17 08:00 Calcium 7.9 mg/dL (8.5-10.1) L 04/22/17 08:00 Total Bilirubin 0.4 mg/dL (0.2-1.0) D 04/22/17 08:00 AST 10 U/L (15-37) L D 04/22/17 08:00 ALT 20 U/L (12-78) 04/22/17 08:00 Alkaline Phosphatase 76 U/L (45-117) 04/22/17 08:00 Total Protein 5.5 g/dl (6.4-8.2) L 04/22/17 08:00 Albumin 2.6 g/dl (3.4-5.0) L 04/22/17 08:00 ASSESSMENT/PLAN: 61 year old male with a past medical history of hypertension and prostate cancer admitted to the ICU for hypovolemic shock 2/2 acute blood loss -cont packing -ENT eval pending -can consider D/c home as hemostasis acheived -suspect packing could be removed in ENT office. -no sqh, OOB to chair, no indication for GI prophy -cont home meds Case Cowan ACN [id number]
[2017-04-22 12:12] LABS: MCHC 32.2 g/dl (32.0-35.9); MEAN CELL VOLUME 80.8 fl (80-96); MEAN PLT VOLUME 8.6 fl (7.5-11.1); PLATELET COUNT 188 K/MM3 (134-434); RDW 15.1 % (11.9-15.9); WHITE BLOOD COUNT 8.4 K/mm3 (4.0-10.0)
--- NOTE | 2017-04-22 12:36 | DS ---
Physical Exam: SUBJECTIVE: Patient seen and examined, he feels well, he would like to eat and go home. OBJECTIVE: Vital Signs Period Temp Pulse Resp BP Sys/Silva Pulse Ox Last 24 Hr 97.3 F-98.5 F 63-89 17-22 79-135/43-71 97-100 PE Neuro: alert, awake, cn 2-12intact HEENT: R nasal rhino rocket intact no bleeding PULM: CTAB CV: s1 s2 rrr nomrg Abd: obese abd, s nt nd +bs Ext: + 1 pitting edema b/l, warm Skin: R quintero wound closed Laboratory Results - last 24 hr 04/22/17 04/22/17 04/22/17 03:55 03:55 03:55 WBC 10.8 H RBC 4.18 Hgb 10.9 L Hct 34.4 L MCV 82.3 MCH 26.1 MCHC 31.7 L RDW 15.6 Plt Count 257 MPV 9.1 Neutrophils % 70.5 Lymphocytes % 16.7 Monocytes % 8.8 Eosinophils % 3.0 Basophils % 1.0 PT with INR 11.60 INR 1.03 PTT (Actin FS) Sodium 141 Potassium 4.5 Chloride 107 Carbon Dioxide 23 Anion Gap 11 BUN 27 H Creatinine 0.9 Creat Clearance w eGFR > 60 Random Glucose 156 H Hemoglobin A1c % Calcium 7.9 L Phosphorus Magnesium Total Bilirubin 0.3 AST 13 L ALT 21 Alkaline Phosphatase 87 Creatine Kinase 108 Troponin I < 0.02 Total Protein 5.7 L Albumin 2.9 L Triglycerides Cholesterol Total LDL Cholesterol HDL Cholesterol Blood Type Antibody Screen Crossmatch 04/22/17 04/22/17 04/22/17 03:55 04:13 08:00 WBC 9.3 RBC 3.93 L Hgb 10.2 L Hct 32.2 L MCV 81.9 MCH 25.9 MCHC 31.6 L RDW 15.3 Plt Count 178 D MPV 8.7 Neutrophils % 85.7 H D Lymphocytes % 7.2 L D Monocytes % 5.6 Eosinophils % 0.8 Basophils % 0.7 PT with INR INR PTT (Actin FS) Sodium Potassium Chloride Carbon Dioxide Anion Gap BUN Creatinine Creat Clearance w eGFR Random Glucose Hemoglobin A1c % Calcium Phosphorus Magnesium Total Bilirubin AST ALT Alkaline Phosphatase Creatine Kinase Troponin I Total Protein Albumin Triglycerides Cholesterol Total LDL Cholesterol HDL Cholesterol Blood Type O POSITIVE O POSITIVE Antibody Screen Negative Crossmatch See Detail See Detail 04/22/17 04/22/17 04/22/17 08:00 08:00 08:00 WBC RBC Hgb Hct MCV MCH MCHC RDW Plt Count MPV Neutrophils % Lymphocytes % Monocytes % Eosinophils % Basophils % PT with INR 11.90 H INR 1.05 PTT (Actin FS) 28.6 Sodium 140 Potassium 4.9 Chloride 109 H Carbon Dioxide 23 Anion Gap 8 BUN 33 H D Creatinine 0.8 Creat Clearance w eGFR > 60 Random Glucose 115 H D Hemoglobin A1c % 5.8 Calcium 7.9 L Phosphorus 2.6 Magnesium 2.0 Total Bilirubin 0.4 D AST 10 L D ALT 20 Alkaline Phosphatase 76 Creatine Kinase Troponin I Total Protein 5.5 L Albumin 2.6 L Triglycerides Cholesterol Total LDL Cholesterol HDL Cholesterol Blood Type Antibody Screen Crossmatch 04/22/17 04/22/17 08:00 12:05 WBC 8.4 RBC 3.89 L Hgb 10.1 L Hct 31.4 L MCV 80.8 MCH 26.0 MCHC 32.2 RDW 15.1 Plt Count 188 MPV 8.6 Neutrophils % Lymphocytes % Monocytes % Eosinophils % Basophils % PT with INR INR PTT (Actin FS) Sodium Potassium Chloride Carbon Dioxide Anion Gap BUN Creatinine Creat Clearance w eGFR Random Glucose Hemoglobin A1c % Calcium Phosphorus Magnesium Total Bilirubin AST ALT Alkaline Phosphatase Creatine Kinase Troponin I Total Protein Albumin Triglycerides 91 Cholesterol 124 Total LDL Cholesterol 77 HDL Cholesterol 35 L Blood Type Antibody Screen Crossmatch HOSPITAL COURSE: Date of Admission:04/22/17 Date of Discharge: 04/22/17 Minutes to complete discharge: 37 Discharge Summary Reason For Visit: HYPOTENSION,NOSEBLEED Current Active Problems Hypotension (Acute) Hospital Course: Initial Hospital Course: Briefly, this 61 year old male with pmhx of prostate cancer on sildenafil and HTN presented to ED with 5 day hx of spontaneous epistaixis. The bleeding has been intermittent and pt related to URI in last week. He spoke to oncologist team and they suggested he stop sildenafi, which he did. He made appt for ENT eval for 04/22 however, 04/21 the bleeding became severe and he felt he was unable to effectively control bleeding. Before was able to control with pinching of nares and using ice pack. On way into ED he had presyncopal episode. He is not on anticoagulation or anti-plt therapy. He denies frequent nosebleeds. ED pt was hypotensive with SBP in 80s, tachycardic and pale. Hgb was 10, he was transfused 1 PRBC. A rhino-rocket was placed in R nare with hemostasis achieved. Subsequent Hospital Course/Progress Note/DC summary: Rhino rocket placed in ED, bleeding stopped, stable in ICU and on discharge Hgb 10 with one unit packed cells transfused Hypotension resolved PT sent home with augmentin 875bid x5 days Pt will make appt with Dr. Parviz CARRENO Monday and follow up in clinic as directed by covering MD Dr. Burciaga IF unable to see Dr. Jj, will follow up with primary ENT doctor Monday If bleeding re starts, dizziness, fever, vomiting, instructed to return to ED Pt aware and agrees to above plan Condition: Stable - Instructions Diet, Activity, Other Instructions: Please return to the ED for any new, persistent, or worsening symptoms. Follow up with your PCP in 1 week Referral information for ENT Dr. Jj enclosed. Call Monday to make an appt, if you are unable to, walk into office for follow up Mid morning to early afternoon , tell him Dr. Burciaga told you to do so. Keep nasal packing in place until removed by an ENT doctor If any signs of bleeding, fever, vomiting, pain, the packing coming out return to the ED If you are unable to see Dr. Jj on Monday, keep scheduled appt with Primary ENT doctor in [facility] Resume home medications as directed Referrals: Frank Jj MD [Staff Physician] - 04/24/17 (Follow up on Monday morning for appt and or walk in ) Disposition: HOME - Home Medications Comprehensive Discharge Medication List: Ambulatory Orders Lisinopril/Hydrochlorothiazide [Lisinopril-Hctz 20-12.5 mg Tab] 1 each PO DAILY 07/08/16 This patient is new to me today: Yes Date on this admission: 04/23/17 Emergency Visit: Yes ED Registration Date: 04/22/17 Care time: The patient presented to the Emergency Department on the above date and was hospitalized for further evaluation of their emergent condition. Critical Care patient: No - Discharge Referral Referred to [facility] No
[2017-04-22 14:34] VITALS: BP 130/69; PULSE 88; TEMP 97.2
[2017-04-22] MEDS ORDERED: CHLORHEXIDINE GLUCONATE 4% CLEANSER FOR DECOLONIZATION TP SCH (22:00)
--- NOTE | 2017-04-24 11:38 | EKG ---
Test Reason : Blood Pressure : / mmHG Vent. Rate : 089 BPM Atrial Rate : 089 BPM P-R Int : 148 ms QRS Dur : 076 ms QT Int : 386 ms P-R-T Axes : 056 052 060 degrees QTc Int : 469 ms POOR DATA QUALITY, INTERPRETATION MAY BE ADVERSELY AFFECTED NORMAL SINUS RHYTHM NORMAL ECG NO PREVIOUS ECGS AVAILABLE Confirmed by KUNAL GREGORIO, ARTHUR ([id number]) on 04/24/2017 11:37:46 AM Referred By: Confirmed By:ARTHUR SYED MD
== END 2017-04-22 14:35 | disposition home or self-care (01) | DRG 150 ==
LOC: JER 03:37 → JERBED 05:11 → JICU 05:48
PROVIDERS: ADMIT Internal Medicine; ATTEND Nurse Practitioner Acute Care
PROC: 2Y41X5Z Packing of Nasal Region using Packing Material (ICD-10-PCS; principal; 2017-04-22)
PROC: 30233N1 Transfusion of Nonautologous Red Blood Cells into Peripheral Vein, Percutaneous Approach (ICD-10-PCS; 2017-04-22)
DX: R04.0 Epistaxis (principal); R57.1 Hypovolemic shock; D62 Acute posthemorrhagic anemia; Z68.43 Body mass index [BMI] 50.0-59.9, adult; R42 Dizziness and giddiness; I95.89 Other hypotension; I10 Essential (primary) hypertension; E66.01 Morbid (severe) obesity due to excess calories; G47.33 Obstructive sleep apnea (adult) (pediatric); E88.81 Metabolic syndrome and other insulin resistance; R60.0 Localized edema; Z85.46 Personal history of malignant neoplasm of prostate
CPT/HCPCS: 36415; 36430; 71010-TC; 80053; 80061; 82550; 83036; 83721; 83735; 84100; 84484; 85025; 85027; 85610; 85730; 86850; 86900; 86901; 86922; 93005; 93010; 99285-25; P9038; P9058

== ENCOUNTER 2019-03-30 13:37 | Emergency (ER) | payer BC ==
[2019-03-30 13:47] VITALS: BMI 47.7
[2019-03-30] MEDS ORDERED: OXYMETAZOLINE 0.05% NASAL SOLUTION 15 ML BOTTLE NS PRN ×2 (14:04→14:08)
--- NOTE | 2019-03-30 14:10 | PDOC ---
History of Present Illness - General Chief Complaint: Nasal Bleeding Stated Complaint: NOSE BLEED Time Seen by Provider: 03/30/19 13:45 - History of Present Illness Initial Comments: 03/30/19 14:14 Pt is a 63 y/o M with a significant PMH of prostate cancer (s/p prostatectomy), HTN, and newly diagnosed stage 4 pancreatic cancer (Diagnosed this month). Pt presents to our Emergency Department due to profuse nasal bleeding. Pt endorses that nasal bleed commenced around 1 pm this afternoon. Pt denies any precipitating events. Pt states he has experienced similar symptoms approximately 1 year ago where he ultimately received 1 unit of PRBCs due to anemia. Pt states he began chemotherapy on the of this month and follows an Oncologist at [facility]- Dr Perez. Social: Former Smoker. Quit >10 years ago, smoked 1PPD x35 years). Denies alcohol or drug use. SurgHx: Appendectomy, Prostatectomy Allergies: Sulfites Past History - Past Medical History Allergies/Adverse Reactions: Allergies Allergy/AdvReac Type Severity Reaction Status Date / Time No Known Allergies Allergy Verified 03/30/19 13:59 Home Medications: Ambulatory Orders Amlodipine Besylate [Norvasc -] 5 mg PO DAILY 03/30/19 Cephalexin [Keflex] 500 mg PO TID #12 capsule 03/30/19 Lidocaine 5% Patch [Lidoderm -] 1 applic TD DAILY 03/30/19 Lisinopril [Zestril] 20 mg PO DAILY 03/30/19 Oxycodone HCl [Oxycontin] 10 mg PO Q12H PRN 03/30/19 Anemia: No Asthma: No Cancer: Yes (pancreatic (1st chemo 2 wks ago)) Cardiac Disorders: No CVA: No COPD: No CHF: No Dementia: No Diabetes: No GI Disorders: No Disorders: No HTN: Yes Hypercholesterolemia: No Liver Disease: No Seizures: No Thyroid Disease: No - Surgical History Abdominal Surgery: No Appendectomy: Yes Cardiac Surgery: No Cholecystectomy: No Lung Surgery: No Neurologic Surgery: No Orthopedic Surgery: No - Psycho Social/Smoking Cessation Hx Smoking History: Unknown if ever smoked Have you smoked in the past 12 months: No Hx Alcohol Use: No Drug/Substance Use Hx: No Substance Use Type: Alcohol Hx Substance Use Treatment: No *Physical Exam - Vital Signs Last Vital Signs Temp Pulse Resp BP Pulse Ox 117 H 22 H 173/94 H 03/30/19 13:46 03/30/19 13:46 03/30/19 13:46 - Physical Exam General Appearance: Yes: Nourished HEENT: positive: EOMI. negative: Scleral Icterus (R), Scleral Icterus (L), Tonsillar Exudate, Tonsillar Erythema (Right nare erythematous. Localized area of bleeding ) Respiratory/Chest: positive: Lungs Clear, Normal Breath Sounds. negative: Crackles, Rales, Wheezing Cardiovascular: positive: Regular Rhythm, S1, S2 Gastrointestinal/Abdominal: negative: Distended, Rebound, Tenderness Extremity: positive: Pedal Edema Integumentary: positive: Normal Color Neurologic: positive: Fully Oriented Procedures - Additional Procedures Additional Procedures: other (Silver Nitrate applied to bleeding area in Right Nostril. ) ED Treatment Course - LABORATORY CBC & Chemistry Diagram: 03/30/19 14:31 03/30/19 14:31 Medical Decision Making - Medical Decision Making 03/30/19 14:38 Will order CBC w/ diff, CMP, Afrin for nasal bleeding Bleeding has stopped. Will use Silver Nitrate to affected area to cauterize any further bleeding. Nasal Packing deferred 03/30/19 14:58 Silver Nitrate applied to affected area successfully. 03/30/19 15:02 WBC 1.9. However pt is currently on chemotherapy regimen. 03/30/19 15:09 10 mg Oxycodone once ordered as pt in 03/14 diffuse pain most likely 2/2 metastatic pancreatic cancer. Pt also on similar regimen at home. 03/30/19 15:31 Pt's R nare began to re-bleed. Will apply another Silver Nitrate treatment to bleeding area. 03/30/19 16:03 Second Silver Nitrate not applied as pt with profuse bleeding. Nasal rocket inserted successfully along with Dr Mendosa at bedside. Call placed out to patient's Heme/Onc doctor, Dr Uribe. Covering Physician, Dr Curran spoken to. Advises that pt may go home in light of WBC count of 1.9 and neutropenia if bleeding stops as this is expected post-chemotherapy treatment 03/30/19 16:17 Will d/c patient with ENT follow up to remove Nasal Packing. Will also send Keflex to patient's pharmacy in light of Nasal packing and to prevent Toxic Shock Syndrome like phenomenon. Discharge - Discharge Information Problems reviewed: Yes Clinical Impression/Diagnosis: Epistaxis Condition: Improved - Admission No - Additional Discharge Information Prescriptions: Cephalexin [Keflex] 500 mg PO TID #12 capsule - Follow up/Referral Referrals: Frank Jj MD [Staff Physician] - - Patient Discharge Instructions Additional Instructions: You White Blood cell count was very low. this may be common in patients undergoing chemotherapy. Please visit your oncologist this week. You will be sent home with Afrin spray. This is to stop any bleeding in your nose. Apply to the affected nostril as needed. you may use up to 2 sprays per day. You will go home with the nasal packing remaining in your nose. please follow up with the ENT Doctor on Monday to remove the packing. You will also be sent home on antibiotics. Please take this medication as prescribed. It has been sent to your pharmacy [facility] on [address]. - Post Discharge Activity
--- NOTE | 2019-03-30 14:22 | PDOC ---
Attending Attestation - Resident Resident Name: Paul Gale - ED Attending Attestation I have performed the following: I have examined & evaluated the patient, The case was reviewed & discussed with the resident, I agree w/resident's findings & plan - HPI HPI: 03/30/19 14:36 63 y/o M with a significant PMH of prostate cancer (s/p prostatectomy), HTN, and newly diagnosed stage 4 pancreatic cancer (Diagnosed this month). Pt presents to our Emergency Department due to profuse nasal bleeding x 45 min beginning at 1pm, no precipitating factors. no nose blowing or picking, no recent respiratory illness/congestion/cough.. Pt denies any precipitating events. Pt states he has experienced similar symptoms approximately 1 year ago where he ultimately received 1 unit of PRBCs due to anemia. no known triggers at this time either for epistaxis. Pt states he began chemotherapy on the of this month and follows an Oncologist at [facility]- Dr Perez. - Physicial Exam PE: 03/30/19 15:36 Agree with the resident's HPI and PE as documented in the electronic medical record. NAD, well appearing, alert, EOMI, PERRL, nl conjunctiva, anicteric; right nare with +bleeding. oropharynx clear. normal phonation, tolerating secretions. neck supple. no respiratory distress. abdomen soft nontender. SCOTT x4 normal color for ethnicity, WWP. - Medical Decision Making 03/30/19 15:36 Vital Signs Temp Pulse Resp BP Pulse Ox 117 H 22 H 173/94 H 03/30/19 13:46 03/30/19 13:46 03/30/19 13:46 VS reviewed, tachy, +nose bleeding. hypertensive noted initial attempt at topical cautery given area of erythema seen and site of bleeding, initially controlled. at 1535 - resumed bleeding, copiously compression, blow out clots afrin spray again rhino rocket for tamponade continue to monitor labs and lytes also reviewed, H/H unchanged from prior, baseline mild anemia. +leukopenic, neutropenic with ANC ~910 by calculation. [place] ~2 weeks ago - resident spoke with Dr Curran transformation coach, ok with discharge , as this is expected and not exhibiting systemic issues/symptoms informed oncologist at [facility], discussed results no systemic findings, no fever TSS ppx with abx. NKDA can do keflex vitals rechecked, normalized. pt appears well does not wish to wait for cbc h/h check, which is fine, as pt states he feels much improved, no symptoms and had not waited as long as last time he had epistaxis/syncope/requiring transfusion, so he is comfortable with his current workup f/u ENT, saw Dr Jj previously, advised to f/u 2-3 days also to f/u for infusion with Dr Perez on Monday pt and family aware of impression and plan, agreeable 03/30/19 16:20 03/30/19 16:22
[2019-03-30] MEDS ORDERED: SILVER NITRATE 75% APPLIC STCK 1 PKT EACH TP ONE (14:40)
[2019-03-30 14:47] LABS: BASO % 0.5 % (0-2.0); EOS % 9.1 % (0-4.5); HEMATOCRIT 32.9 % (35.4-49); HEMOGLOBIN 10.4 GM/dL (11.7-16.9); LYMPH % 17.6 % (8-40); MCH 25.3 pg (25.7-33.7); MCHC 31.5 g/dl (32.0-35.9); MEAN CELL VOLUME 80.4 fl (80-96); MEAN PLT VOLUME 8.4 fl (7.5-11.1); MONO % 24.6 % (3.8-10.2); NEUT % 48.2 % (42.8-82.8); PLATELET COUNT 118 K/MM3 (134-434); RDW 18.4 % (11.9-15.9)
[2019-03-30 14:49] LABS: WHITE BLOOD COUNT 1.9 K/mm3 (4.0-10.0)
[2019-03-30] MEDS ORDERED: oxyCODONE HCL 5 MG TABLET PO ONE (14:56)
[2019-03-30 15:01] LABS: INR 1.23 (0.83-1.09); PROTHROMBIN TIME (PATIENT) 14.6 SEC (9.7-13.0)
[2019-03-30 15:08] LABS: ALBUMIN 2.8 g/dl (3.4-5.0); BILIRUBIN,TOTAL 0.5 mg/dL (0.2-1); BLOOD UREA NITROGEN 13.7 mg/dL (7-18); CALCIUM 8.4 mg/dL (8.5-10.1); CREATININE 0.8 mg/dL (0.55-1.3); POTASSIUM 4.5 mmol/L (3.5-5.1); TOT PROT 5.8 g/dl (6.4-8.2)
[2019-03-30] MEDS ORDERED: oxyCODONE HCL 5 MG TABLET ONE (15:17)
[2019-03-30 15:40] VITALS: BP 113/65; PULSE 94
[2019-03-30 16:40] LABS: ANISOCYTOSIS 2+; MACROCYTOSIS 1+; PLATELET ESTIMATE DECREASED
[2019-03-30 16:56] LABS: OVALOCYTE 1+
== END 2019-03-30 16:33 | disposition home or self-care (01) ==
LOC: JER 13:37
PROC: 093K7ZZ Control Bleeding in Nasal Mucosa and Soft Tissue, Via Natural or Artificial Opening (ICD-10-PCS; principal; 2019-03-30)
DX: R04.0 Epistaxis (principal); I10 Essential (primary) hypertension; C25.9 Malignant neoplasm of pancreas, unspecified; Z85.46 Personal history of malignant neoplasm of prostate; Z90.79 Acquired absence of other genital organ(s); Z87.891 Personal history of nicotine dependence; Z88.2 Allergy status to sulfonamides
CPT/HCPCS: 36415; 80053; 85025; 85610; 85730; 86850; 86900; 86901; 99283-25